=== PATIENT | female | born 1950 | race Caucasian/White ===

== ENCOUNTER 2023-11-08 14:46 | Emergency (ER) | payer SELFPAY | END 2023-11-08 14:50 | disposition left against medical advice (07) | DRG 951 | LOC: ED 14:46 → LWOBS 14:50 | DX: Z53.21 Procedure and treatment not carried out due to patient leaving prior to being seen by health care provider (principal) ==

== ENCOUNTER 2023-11-11 10:23 | Emergency (ER) | payer OTHER, MEDICARE ==
[~2023-11-11] VITALS: Ht 175.3 cm; Wt 69.3 kg
[2023-11-11 11:16] VITALS: BP 142/94
[2023-11-11] MEDS ORDERED: METHOCARBAMOL 500 MG/TAB PO ONE (12:45)
[2023-11-11] MEDS ORDERED: IBUPROFEN 800 MG/TAB PO ONE (12:45)
[2023-11-11 13:17] LABS: URINE BILIRUBIN - DIPSTICK Negative (NEGATIVE); URINE BLOOD DIPSTICK Negative (NEGATIVE); URINE CLARITY Clear; URINE GLUCOSE - DIPSTICK Negative (NEGATIVE); URINE KETONE Negative (NEGATIVE); URINE LEUK ESTERASE Negative (Negative); URINE NITRITE - DIPSTICK Negative (Negative); URINE PH 5.5 (4.5-8.0); URINE PROTEIN - DIPSTICK Negative (NEG-TRACE); URINE UROBILINOGEN - DIPSTICK 0.2 E.U./dL (0.2)
[2023-11-11 13:18] LABS: URINE COLOR Yellow
[2023-11-11 13:21] LABS: BASO% 1.1 % (0-3); EOS% 2.5 % (0-8); HEMATOCRIT 40.1 % (37.0-47.0); HEMOGLOBIN 13.3 g/dl (12.0-16.0); IMMATURE GRANULOCYTES 0.2 % (0.0-5.0); MEAN CELL VOLUME 97.3 fL CALC (80.0-100.0); MEAN CORPUSCULAR HGB 32.3 pG CALC (26.0-32.0); MEAN CORPUSCULAR HGB CONC 33.2 g/dL CAL (32.0-36.0); MONO% 7.1 % (2-13); NEUT# 3.43 thou/uL (2.00-7.15); NEUT% 62.1 % (42-76); RED BLOOD COUNT 4.12 mill/uL (4.20-5.60); RED CELL DISTRI WIDTH 12.7 % (11.5-15.5)
[2023-11-11 13:35] LABS: ALBUMIN 4.4 g/dL (3.2-5.0); ALKALINE PHOSPHATASE 60 u/l (38-126); ANION GAP 8 (6-22 (CALC)); BILIRUBIN, TOTAL 0.6 mg/dL (0.02-1.3); BUN 19 mg/dL (8-23); BUN/CREATININE RATIO 30 (12-20 (CALC)); CARBON DIOXIDE 29 mmol/l (22-30); CHLORIDE 108 mmol/l (95-108); CREATININE 0.6 mg/dL (0.5-1.0); GFR FOR AFR.AMER. > 60 ML/MIN (>=60 (CALC)); GFR OTHER RACES > 60 ML/MIN (>=60 (CALC)); POTASSIUM 4.5 mmol/l (3.5-5.1); SGOT/AST 28 u/l (9-36); SODIUM 141 mmol/l (137-146); TOTAL PROTEIN 7.1 g/dL (6.3-8.2)
[2023-11-11] MEDS ORDERED: METHOCARBAMOL500 MG PO (15:16)
[2023-11-11] MEDS ORDERED: MOTRIN800 MG PO (15:16)
[2023-11-11 15:22] VITALS: BP 142/94
== END 2023-11-11 15:26 | disposition home or self-care (01) | DRG 552 ==
LOC: ED 10:23
PROVIDERS: Nurse Practitioner Family
DX: M54.2 Cervicalgia (principal); S40.022A Contusion of left upper arm, initial encounter; S80.12XA Contusion of left lower leg, initial encounter; V44.5XXA Car driver injured in collision with heavy transport vehicle or bus in traffic accident, initial encounter